=== PATIENT | female | born 1985 | race Caucasian/White ===

== ENCOUNTER 2017-09-12 16:00 | Emergency (ER) | payer OTHER, SELFPAY ==
[2017-09-12 16:02] VITALS: BP 149/110; PULSE 127; RESP 20; TEMP 36.6; O2SAT 98; BMI 20.3
--- NOTE | 2017-09-12 16:37 | HMH.EDGENADL ---
ED Disposition Clinical Impression: Drug abuse, Dehydration Disposition: Left Against Medical Advice Condition on Discharge: Good Instructions: Anxiety Disorders Additional Instructions: keep your drug treatment program that you have lined up tommorrow. return if you change your mind about letting us check some labs, and IV hydration. give patient social work associate followup give patient psychiatric followup return if any suicidal thoughts or any problems to ER - Critical Care Critical Care Time: No Attestation: On 09/12/17, the high probability of a clinically significant, sudden or life threatening deterioration of the following system(s) required my full and direct attention, intervention and personal management. The time I documented below is in addition to time spent performing reported procedures but includes the following listed in this critical care notation. Medical Decision Making Vital Signs: 09/12/17 16:02 Temperature 97.8 F Temperature Source Oral Pulse Rate [Right Radial] 127 H Respiratory Rate 20 Blood Pressure [Right Arm] 149/110 Blood Pressure Mean [Right Arm] 123 Blood Pressure Source [Right Arm] Automatic Cuff Blood Pressure Position [Right Arm] Sitting 02 Sat by Pulse Oximetry 98 Oxygen Delivery Method Room Air Orders (Tests/Meds): ORDERS Category Date Time Status Beta HCG, Qual [HCG Qualitative, Serum] Stat Lab 09/12/17 16:27 Ordered Complete Blood Count Auto Diff Stat Lab 09/12/17 16:27 Ordered Comprehensive Metabolic Panel Stat Lab 09/12/17 16:27 Ordered - Yvan Inquiry Pt receiving controlled substance: No General Adult HPI - General Chief complaint: Anxiety Stated complaint: possible Mode of Arrival: EMS Limitations: No Limitations Description of Symptoms (Recalled from ER Triage Doc. by RN): pt is anxiousis out of clonazapam, went to social work associate and was told by law enforcement she had to come here or go to [facility] - History of Present Illness HPI narrative: Patient to me denies drug abuse. She is here by police the story is somewhat vague. States she does not want to be here she has track byers on her left arm she denies injecting any drugs. Denies any drug abuse she states [facility] she tells me she has not been on: Benazepril I am for over 2 weeks. Denies any suicidal or homicidal ideation she states she chronically hears voices and that is unchanged she denies any visual hallucinations she denies any pain. Patient appears dehydrated to me she denies being dehydrated and she does not want any IV fluids or any blood draws or workup done. Discussed with her that I would definitely recommend some IV fluid and some blood work so we could help her out but she states that she is going to sign out AGAINST MEDICAL ADVICE discussed with the risk of and permanent disability. She states that she already has drug rehab arranged tomorrow and has a bed in the facility and that she is going to her family's house today, that she is going to follow-up with the drug rehab tomorrow. - Related Data Home Medications Medication Instructions Recorded Confirmed Amitriptyline HCl [Elavil 25mg 25 mg PO DAILY 09/12/17 09/12/17 tablet] Buprenorphine HCl [Subutex 8mg ODT] 8 mg SL QID 09/12/17 09/12/17 clonazePAM [Clonazepam] 2 mg PO TID 09/12/17 09/12/17 Allergies Allergy/AdvReac Type Severity Reaction Status Date / Time acetaminophen [ACETAMINOPHEN] Allergy Mild Verified 09/12/17 16:18 codeine [CODEINE] Allergy Mild Verified 09/12/17 16:18 phenazopyridine Allergy Mild Verified 09/12/17 16:18 [From PYRIDIUM] [facility] History I have reviewed the patient's past medical history: Yes Medical History: Denies:: Cancer, Diabetes Mellitus Type 1, Diabetes Mellitus Type 2, MRSA Amputation: No Fractures: No - *Social History Smoking Status: Current every day smoker Tobacco Type: cigarettes # Packs/Day (cigarettes): 1 Alcohol
--- NOTE | 2017-09-12 16:41 | ED_ITS ---
ED Disposition Clinical Impression: Drug abuse, Dehydration Disposition: Left Against Medical Advice Condition on Discharge: Good Instructions: Anxiety Disorders Additional Instructions: keep your drug treatment program that you have lined up tommorrow. return if you change your mind about letting us check some labs, and IV hydration. 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 The time I documented below is in addition to time spent performing reported procedures but includes the following listed in this critical care notation. Medical Decision Making Vital Signs: 09/12/17 16:02 Temperature 97.8 F Temperature Source Oral Pulse Rate [Right Radial] 127 H Respiratory Rate 20 Blood Pressure [Right Arm] 149/110 Blood Pressure Mean [Right Arm] 123 Blood Pressure Source [Right Arm] Automatic Cuff Blood Pressure Position [Right Arm] Sitting 02 Sat by Pulse Oximetry 98 Oxygen Delivery Method Room Air Orders (Tests/Meds): ORDERS Category Date Time Status Beta HCG, Qual [HCG Qualitative, Serum] Stat Lab 09/12/17 16:27 Ordered Complete Blood Count Auto Diff Stat Lab 09/12/17 16:27 Ordered Comprehensive Metabolic Panel Stat Lab 09/12/17 16:27 Ordered - Yvan Inquiry Pt receiving controlled substance: No General Adult HPI - General Chief complaint: Anxiety Stated complaint: possible Mode of Arrival: EMS Limitations: No Limitations Description of Symptoms (Recalled from ER Triage Doc. 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 She is here by police the story is somewhat vague. States she does not want to be here she has track byers on her left arm she denies injecting any drugs. Denies any drug abuse she states she just got out of group home she tells me she has not been on: Benazepril I am for over 2 weeks. Denies any suicidal or homicidal ideation she states she chronically hears voices and that is unchanged she denies any visual hallucinations she denies any pain. Patient appears dehydrated to me she denies being dehydrated and she does not want any IV fluids or any blood draws or workup done. Discussed with her that I would definitely recommend some IV fluid and some blood work so we could help her out but she states that she is going to sign out AGAINST MEDICAL ADVICE discussed with the risk of and permanent disability. She states that she already has drug rehab arranged tomorrow and has a bed in the facility and that she is going to her family's house today, that she is going to follow-up with the drug rehab tomorrow. - Related Data Home Medications Medication Instructions Recorded Confirmed Amitriptyline HCl [Elavil 25mg 25 mg PO DAILY 09/12/17 09/12/17 tablet] Buprenorphine HCl [Subutex 8mg ODT] 8 mg SL QID 09/12/17 09/12/17 clonazePAM [Clonazepam] 2 mg PO TID 09/12/17 09/12/17 Allergies
[2017-09-12 17:28] VITALS: BP 138/90; PULSE 88; RESP 18; TEMP 36.8; O2SAT 99
== END 2017-09-12 17:30 | disposition left against medical advice (07) ==
PROVIDERS: Emergency Provider Emergency Medicine
DX: F19.10 Other psychoactive substance abuse, uncomplicated (principal); E86.0 Dehydration; F41.9 Anxiety disorder, unspecified; F17.210 Nicotine dependence, cigarettes, uncomplicated; Z79.899 Other long term (current) drug therapy; Z88.6 Allergy status to analgesic agent
CPT/HCPCS: 99281

== ENCOUNTER 2018-11-23 00:29 | Inpatient (IN) ==
[2018-11-23 00:52] LABS: Basophils % 0.2 % (0.1-2.0); Eosinophils % 0.2 % (0.1-12.0); Hematocrit 34.4 % (37.0-47.0); Hemoglobin 12.1 g/dL (12.2-16.2); Lymphocytes # 2.2 K/mm3 (0.7-4.5); Mean Corpuscular Hemoglobin 31.9 pg (27.0-31.2); Mean Corpuscular Volume 91.1 fl (81-99); Mean Platelet Volume 9.8 fl (7.4-10.4); Monocytes # 1.1 K/mm3 (0.1-1.0); Monocytes % 7.4 % (1.7-9.3); Neutrophils # 11.3 K/mm3 (1.8-7.8); Neutrophils % 77.2 % (37.0-80.0); Platelet Count 216 K/mm3 (142-424); Red Blood Count 3.78 M/mm3 (4.20-5.40); Red Cell Distribution Width 12.9 % (11.5-17.5); White Blood Count 14.6 K/mm3 (4.8-10.8)
[2018-11-23 01:16] LABS: Alanine Aminotransferase 33 U/L (12-78); Albumin Level 3.2 gm/dL (3.4-5.0); Albumin/Globulin Ratio 0.6 (1.1-1.8); Alkaline Phosphatase 78 U/L (46-116); Anion Gap 16.6 mEq/L (5-15); Aspartate Amino Transferase 29 U/L (15-37); Bilirubin,Total 0.8 mg/dL (0.2-1.0); Blood Urea Nitrogen 6 mg/dL (7-18); Calcium 8.7 mg/dL (8.5-10.1); Carbon Dioxide 27 mmol/L (21.0-32.0); Chloride 92 mmol/L (98-107); Globulin 5.4 gm/dl (1.3-3.2); Glucose 114 mg/dL (74-106); Sodium 133 mmol/L (136-145); Total Protein,Serum 8.6 gm/dL (6.4-8.2)
[2018-11-23 01:27] LABS: C-Reactive Protein > 12.0 mg/L (0.0-0.9)
[2018-11-23 01:28] LABS: Creatine Kinase 281 U/L (26-192); Potassium 2.6 mmoL/L (3.5-5.1)
[2018-11-23 01:33] LABS: Microscopic, Urine URINE MICROSCOPIC (MICROSCOPIC)
[2018-11-23 01:37] LABS: Blood, Urine 3+ (Negative); Glucose,Urine (UA) Negative (Negative); Ketones,Urine TRACE (Negative); Leukocyte Esterase,Urine 2+ (Negative); Protein,Urine 3+ (Negative)
[2018-11-23 01:39] LABS: Appearance,Urine Turbid (Clear); Bilirubin,Urine Negative (Negative); Color,Urine Amber (Yellow)
[2018-11-23 01:42] LABS: Amorphous Sediment,Urine Trace /lpf; Bacteria,Urine 4+ /lpf; Mucus,Urine 2+ /lpf; RBC,Urine 50-100 #/hpf (0-3); WBC,Urine 20-50 #/hpf (0-3)
[2018-11-23 01:44] LABS: Amphetamine/Metha Screen,Urine Positive ng/mL (<1000); Barbiturates Screen,Urine Negative ng/mL (<200); Benzodiazepines Screen,Urine Negative ng/mL (<200); Cannabinoid Screen,Urine Positive ng/mL (<50); Cocaine Screen,Urine Negative ng/mL (<300); Methadone Screen,Urine Negative ng/mL (<300); Opiate Screen,Urine Negative ng/mL (<300); Phencyclidine Screen,Urine Negative ng/mL (<25)
[2018-11-23 02:13] LABS: Erythrocyte Sedimentation Rate > 120 mm/hr (0-20)
--- NOTE | 2018-11-23 06:48 | Emergency Department Note ---
ED Disposition Clinical Impression: Gingivitis, Drug abuse, Severe sepsis, Acute hypokalemia, Elevated erythrocyte sedimentation rate, Elevated C-reactive protein UTI (urinary tract infection) Qualifiers: Urinary tract infection type: site unspecified Hematuria presence: without hematuria Qualified Code(s): N39.0 - Urinary tract infection, site not specified Disposition: Admitted as Observation Condition on Discharge: Serious Referrals: Provider,Referral, MD [Primary Care Provider] - - Critical Care Critical Care Time: No Attestation: On 11/23/18, the high probability of a clinically significant, sudden or life threatening deterioration of the following system(s) required my full and direct attention, intervention and personal management. The time I documented below is in addition to time spent performing reported procedures but includes the following listed in this critical care notation. Medical Decision Making - Medical Records Medical records reviewed: Yes: I reviewed the patient's medical records. - Yvan Inquiry Pt receiving controlled substance: No Vital Signs: 11/23/18 00:30 11/23/18 01:26 11/23/18 01:57 Temperature 99.3 F Temperature Source Oral Pulse Rate [Right] 148 H 140 H 150 H Respiratory Rate 22 18 18 Blood Pressure [Right Arm] 146/99 H 144/92 H 135/76 Blood Pressure Mean [Right Arm] 114 109 95 Blood Pressure Source [Right Arm] Automatic Cuff Automatic Cuff Automatic Cuff Blood Pressure Position [Right Arm] Supine Supine Supine 02 Sat by Pulse Oximetry 100 100 100 Oxygen Delivery Method Room Air Room Air Room Air 11/23/18 02:38 11/23/18 03:06 11/23/18 03:59 Temperature Temperature Source Pulse Rate [Right] 138 H 140 H 136 H Respiratory Rate 16 16 16 Blood Pressure [Right Arm] 140/77 113/72 121/71 Blood Pressure Mean [Right Arm] 98 85 87 Blood Pressure Source [Right Arm] Automatic Cuff Automatic Cuff Automatic Cuff Blood Pressure Position [Right Arm] Supine Supine Supine 02 Sat by Pulse Oximetry 100 98 96 Oxygen Delivery Method Room Air Room Air Room Air 11/23/18 04:40 11/23/18 05:00 11/23/18 05:25 Temperature Temperature Source Pulse Rate [Right] 130 H 126 H 126 H Respiratory Rate 16 16 Blood Pressure [Right Arm] 123/80 121/64 127/68 Blood Pressure Mean [Right Arm] 94 83 87 Blood Pressure Source [Right Arm] Automatic Cuff Blood Pressure Position [Right Arm] Supine 02 Sat by Pulse Oximetry 98 98 98 Oxygen Delivery Method Room Air 11/23/18 05:30 11/23/18 06:09 Temperature Temperature Source Pulse Rate [Right] 112 H 116 H Respiratory Rate 16 Blood Pressure [Right Arm] 112/71 107/67 L Blood Pressure Mean [Right Arm] 84 80 Blood Pressure Source [Right Arm] Automatic Cuff Blood Pressure Position [Right Arm] Supine 02 Sat by Pulse Oximetry 96 98 Oxygen Delivery Method Room Air - Lab Data Lab results reviewed: Yes: I reviewed the patient's lab results. Lab Results 11/23/18 00:35: Urine Color Pallavi, Urine Appearance Turbid, Urine pH 6.0, Ur Specific [place] 1.020, Urine Protein 3+, Urine Glucose (UA) Negative, Urine Ketones Trace, Urine Blood 3+, Urine Nitrate Positive, Urine Bilirubin Negative, Urine Urobilinogen 1.0, Ur Leukocyte Esterase 2+ A, Urine RBC 50-100, Urine WBC 20-50, Amorphous Sediment Trace, Urine Bacteria 4+, Urine Mucus 2+ 11/23/18 00:35: WBC 14.6 H, RBC 3.78 L, Hgb 12.1 L, Hct 34.4 L, MCV 91.1, MCH 31.9 H, MCHC 35.0, RDW 12.9, Plt Count 216, MPV 9.8, Neut % (Auto) 77.2, Lymph % (Auto) 15.0, [place] % (Auto) 7.4, Eos % (Auto) 0.2, Baso % (Auto) 0.2, Neut # (Auto) 11.3 H, Lymph # (Auto) 2.2, [place] # (Auto) 1.1 H, Eos # (Auto) 0.0, Baso # (Auto) 0.0, ESR > 120 H 11/23/18 00:35: Sodium 133 L, Potassium 2.6 L*, Chloride 92 L, Carbon Dioxide 27, Anion Gap 16.6 H, BUN 6 L, Creatinine 1.20 H, Estimated Creat Clear 64, Est imated GFR 53 L, Est GFR ( Amer) 64, Glucose 114 H, Calcium 8.7, Total Bilirubin 0.8, AST 29, ALT 33, Alkaline Phosphatase 78, C-Reactive Protein > 12.0 H, Total Protein 8.6 H, Albumin 3.2 L, Globulin 5.4 H, Albumin/Globulin Ratio 0.6 L 11/23/18 00:35: Total Creatine Kinase 281 H, CK-MB (CK-2) < 0.5, CK-MB (CK-2) Rel Index 0.2, Troponin I < 0.02 11/23/18 01:10: Urine HCG, Qual Negative 11/23/18 01:10: Urine Opiates Screen Negative, Urine Methadone Screen Negative, Ur Barbituates Screen Negative, Ur Phencyclidine Scrn Negative, Ur Amphetamines Screen Positive H, U Benzodiazepines Scrn Negative, Urine Cocaine Screen Negative, U Marijuana (THC) Screen Positive H 11/23/18 01:19: Lactate 1.0 Result diagrams: 11/23/18 00:35 11/23/18 00:35 Orders (Tests/Meds): ED MEDICATIONS Generic Name Dose Route Start Last Admin Trade Name Freq PRN Reason Stop Dose Admin Piperacillin Sod/Tazobactam 100 mls @ 200 mls/hr 11/23/18 08:00 Sod 4.5 gm/ Sodium Chloride IV 12/07/18 07:59 Q6H ELICEO Discontinued Medications Generic Name Dose Route Start Last Admin Trade Name Freq PRN Reason Stop Dose Admin Vancomycin HCl 1,250 mg/ 250 mls @ 125 mls/hr 11/23/18 02:32 11/23/18 02:39 Sodium Chloride IV 11/23/18 04:31 125 mls/hr ONCE ONE Administration Sodium Chloride 1,000 mls @ 999 mls/hr 11/23/18 02:45 11/23/18 02:39 Sod Chlor 0.9% 1000ml Bag IV 11/23/18 03:45 999 mls/hr .Q1H1M ELICEO Administration Ketorolac Tromethamine 30 mg 11/23/18 02:32 11/23/18 02:39 Toradol 30mg/Ml Vial IV 11/23/18 02:33 30 mg ONCE ONE Administration ORDERS Category Date Time Status Blood Culture Stat Micro 11/23/18 01:19 Received Urine Culture Stat Micro 11/23/18 00:35 Received - Radiology Data #1 Image(s): Chest Image Reviewed: Yes I reviewed the patient's radiology image Preliminary Findings: Normal/NAD - US Data US Images: Other (echo) ED US Reviewed: Yes: I have reviewed the patient's US results Findings Narrative: no evid of sbe - ECG Data Tracing #1 Arrhythmias present: sinus tach Ischemic changes: non-specific ST-T wave changes Dental HPI - General Chief complaint: Dental/Oral Stated complaint: Tooth Pain Time Seen by Provider: 11/23/18 00:45 Mode of Arrival: Ambulatory Source of Information: Patient, Significant Other, Medical Record Limitations: No Limitations Description of Symptoms (Recalled from ER Triage Doc. by RN): Pt has right nlower tooth abscess with right chest pain - History of Present Illness HPI Narrative: pt with dental pain and infection over the last few days and now has rt sided chest pain - has used drugs in the past - pt with no recent ivdu reported - pt reports being in suboxone clinic Onset (ago): day(s) Duration: constant Severity: moderate Context: poor dental care Associated symptoms: gum swelling Treatment prior to arrival: none - Related Data Home Medications Medication Instructions Recorded Confirmed Buprenorphine HCl [Subutex 8mg ODT] 8 mg SL QID 09/12/17 11/23/18 Allergies Allergy/AdvReac Type Severity Reaction Status Date / Time acetaminophen [ACETAMINOPHEN] Allergy Mild Verified 11/23/18 00:40 codeine [CODEINE] Allergy Mild Verified 11/23/18 00:40 phenazopyridine Allergy Mild Verified 11/23/18 00:40 [From PYRIDIUM] [facility] History - Hepatitis A Screen Drug use history?: No High risk sexual behaviors?: No History of sexually transmitted infection?: No Currently employed?: No Childcare worker?: No Do you have indoor plumbing?: Yes Do you have electricity?: Yes Attestation statement:: This patient has been screened for Hepatitis A risk factors. I have reviewed the patient's past medical history: Yes Medical History: Denies:: Cancer, Diabetes Mellitus Type 1, Diabetes Mellitus Type 2, MRSA Amputation: No Fractures: No - Social History Smoking Status: Current every day smoker Tobacco Type: cigarettes # Packs/Day (cigarettes): 1 Alcohol Intake: never Occupational Status: unemployed - Psychiatric History Expresses thoughts of harming self/others: None Suicide Plan Description: No Plan ROS Obtained: Yes All systems reviewed & no additional complaints - Constitutional Constitutional: Reports fever(s) - Eyes Eyes: Denies change in vision - ENT Ears, Nose, Mouth, and Throat: Reports as per HPI, Reports dental pain - Cardiovascular Cardiovascular: Reports chest pain, Denies dyspnea - Respiratory Respiratory: No cough - Gastrointestinal Gastrointestingal: Denies: abdominal pain - Genitourinary Female Genitourinary: Denies hematuria - Musculoskeletal Musculoskeletal: Denies joint swelling - Integumentary/Breasts Skin/Breast: Reports rash, Reports other (scattered skin lesions ) - Neurologic Neurologic: Denies convulsions, Denies focal weakness Physical Exam - General General appearance: alert, in no apparent distress - Head Head exam: normocephalic - Eye Eye exam: Present: PERRL, EOMI. Absent: scleral icterus - ENT ENT exam: Present: mucous membranes dry - Expanded ENT Exam Teeth exam: Present: dental caries, gingival swelling - Neck Neck exam: Present: full ROM, trachea midline - Respiratory Respiratory exam: Present: normal lung sounds bilaterally. Absent: respiratory distress - Cardiovascular Cardiovascular exam: Present: regular rate, systolic murmur - Abdominal Exam Abdominal exam: Present: soft - Extremities Exam Extremities exam: Present: full ROM - Neurological Exam Neurological exam: Present: alert, oriented X3, CN II-XII intact - Psychiatric Psychiatric exam: Present: normal affect - Skin Skin exam: Present: rash, other (scattered skin lesions )
--- NOTE | 2018-11-23 10:52 | History & Physical Report ---
*Admission Date: 11/23/18 *Chief complaint: dental pain/infection *History of present illness: this wf presented to ed with dental infection and facial swelling with tacycardia and hx of drug use and rt sided chest pain - she was found to have severe sepsis and uti and dental infection and admitted for ivf and abx [facility] History I have reviewed the patient's past medical history: Yes Medical History: Denies:: Cancer, Diabetes Mellitus Type 1, Diabetes Mellitus Type 2, MRSA *Have you ever received a pneumonia vaccine?: No *Have you received a flu vaccine this season?: No Amputation: No Fractures: No - *Social History Smoking Status: Current every day smoker Tobacco Type: cigarettes # Packs/Day (cigarettes): 1 Alcohol Intake: never *Occupational Status:: unemployed *Travel in the last 8 weeks: None - Psychiatric History Expresses thoughts of harming self/others: None Suicide Plan Description: No Plan Family Hx:: Non-contributory Review of Systems - Review of Systems Review of systems:: pertinent systems reviewed and negative unless documented below - Constitutional Reports fever(s), Reports weakness - Eyes Denies change in vision - ENT Reports dental pain - *Cardiovascular Reports chest pain at rest, Denies shortness of breath - *Respiratory Denies cough, Denies coughing up blood - *Gastrointestinal Denies abdominal pain - *Genitourinary Denies blood in urine - *Musculoskeletal Denies joint pain - Integumentary/Breasts Reports rash - *Neurologic Denies seizure-like activity, Denies localized weakness - Psychiatric Reports other (hx of ivdu in past ), Denies anxiety Meds Home Medications Medication Instructions Recorded Confirmed Type Buprenorphine HCl [Subutex 8mg ODT] 8 mg SL QID 09/12/17 11/23/18 History Allergies Allergy/AdvReac Type Severity Reaction Status Date / Time acetaminophen [ACETAMINOPHEN] Allergy Mild Verified 11/23/18 00:40 codeine [CODEINE] Allergy Mild Verified 11/23/18 00:40 phenazopyridine Allergy Mild Verified 11/23/18 00:40 [From PYRIDIUM] Exam Vital signs and Labs for Last 24 Hours: Temp Pulse Resp BP Pulse Ox 97.8 F 120 H 16 111/72 96 11/23/18 10:26 11/23/18 10:26 11/23/18 10:26 11/23/18 10:26 11/23/18 08:19 Laboratory Results - last 24 hr 11/23/18 00:35: Urine Color Pallavi, Urine Appearance Turbid, Urine pH 6.0, Ur Specific [place] 1.020, Urine Protein 3+, Urine Glucose (UA) Negative, Urine Ketones Trace, Urine Blood 3+, Urine Nitrate Positive, Urine Bilirubin Negative, Urine Urobilinogen 1.0, Ur Leukocyte Esterase 2+ A, Urine RBC 50-100, Urine WBC 20-50, Amorphous Sediment Trace, Urine Bacteria 4+, Urine Mucus 2+ 11/23/18 00:35: WBC 14.6 H, RBC 3.78 L, Hgb 12.1 L, Hct 34.4 L, MCV 91.1, MCH 31.9 H, MCHC 35.0, RDW 12.9, Plt Count 216, MPV 9.8, Neut % (Auto) 77.2, Lymph % (Auto) 15.0, [place] % (Auto) 7.4, Eos % (Auto) 0.2, Baso % (Auto) 0.2, Neut # (Auto) 11.3 H, Lymph # (Auto) 2.2, [place] # (Auto) 1.1 H, Eos # (Auto) 0.0, Baso # (Auto) 0.0, ESR > 120 H 11/23/18 00:35: Sodium 133 L, Potassium 2.6 L*, Chloride 92 L, Carbon Dioxide 27, Anion Gap 16.6 H, BUN 6 L, Creatinine 1.20 H, Estimated Creat Clear 64, Estimated GFR 53 L, Est GFR ( Amer) 64, Glucose 114 H, Calcium 8.7, Total Bilirubin 0.8, AST 29, ALT 33, Alkaline Phosphatase 78, C-Reactive Protein > 12.0 H, Total Protein 8.6 H, Albumin 3.2 L, Globulin 5.4 H, Albumin/Globulin Ratio 0.6 L 11/23/18 00:35: Total Creatine Kinase 281 H, CK-MB (CK-2) < 0.5, CK-MB (CK-2) Rel Index 0.2, Troponin I < 0.02 11/23/18 01:10: Urine HCG, Qual Negative 11/23/18 01:10: Urine Opiates Screen Negative, Urine Methadone Screen Negative, Ur Barbituates Screen Negative, Ur Phencyclidine Scrn Negative, Ur Amphetamines Screen Positive H, U Benzodiazepines Scrn Negative, Urine Cocaine Screen Negative, U Marijuana (THC) Screen Positive H 11/23/18 01:19: Lactate 1.0 I & O for Last 24 hours: Intake & Output 11/20/18 11/21/18 11/22/18 11/23/18 11:59 11:59 11:59 11:59 Weight 130 lb - Constitutional no acute distress - *Routine HEENT Exam Head: Present: normocephalic Eye: Present: EOMI, PERRL. Absent: conjunctival icterus ENT: Present: mucous membranes dry Comments: marked dental dis and gingival dis - *Routine Neck Exam Present: supple. Absent: JVD - *Routine Respiratory Exam Present: CTA bilaterally - *Routine Cardiovascular Exam Present: RRR, tachycardia. Absent: murmur, gallop, rubs - *Routine Abdominal Exam Present: soft. Absent: organomegaly - *Routine Extremities Exam Absent: calf tenderness - Routine Back/Spine/Pelvis Exam Back/Spine: Present: full ROM - *Routine Skin Exam Present: rash (nonspecific ) - *Routine Neurological Exam Present: alert, oriented X3, CN II-XII intact. Absent: motor deficit, altered mental status - Routine Psychiatric Exam Present: anxious Assessment and Plan (1) Dermatitis Current visit: Yes Status: Acute Category: Medical Code(s): L30.9 - Dermatitis, unspecified (2) Drug abuse Current visit: Yes Status: Acute Category: Medical Code(s): F19.10 - Other psychoactive substance abuse, uncomplicated (3) Gingivitis Current visit: Yes Status: Acute Category: Medical Code(s): K05.10 - Chronic gingivitis, plaque induced (4) Severe sepsis Current visit: Yes Status: Acute Category: Medical Code(s): A41.9 - Sepsis, unspecified organism; R65.20 - Severe sepsis without septic shock (5) UTI (urinary tract infection) Current visit: Yes Status: Acute Qualifiers: Urinary tract infection type: site unspecified Hematuria presence: without hematuria Qualified Code(s): N39.0 - Urinary tract infection, site not specified Category: Medical Code(s): N39.0 - Urinary tract infection, site not specified (6) Acute hypokalemia Current visit: Yes Status: Acute Category: Medical Code(s): E87.6 - Hyp okalemia (7) Elevated erythrocyte sedimentation rate Current visit: Yes Status: Acute Category: Medical Code(s): R70.0 - Elevated erythrocyte sedimentation rate (8) Elevated C-reactive protein Current visit: Yes Status: Acute Category: Medical Code(s): R79.82 - Elevated C-reactive protein (CRP)
--- NOTE | 2018-11-23 11:11 | Pharmacy Consult Notes ---
- Pharmacy Consult Date: 11/23/18 Time: 11:09 Referring provider: DR. HERNANDEZ Reason for Consult:: VANCOMYCIN DOSING Allergies and ADEs:: Allergies Allergy/AdvReac Type Severity Reaction Status Date / Time acetaminophen [ACETAMINOPHEN] Allergy Mild Verified 11/23/18 00:40 codeine [CODEINE] Allergy Mild Verified 11/23/18 00:40 phenazopyridine Allergy Mild Verified 11/23/18 00:40 [From PYRIDIUM] Home Medications:: Home Medications Medication Instructions Recorded Confirmed Type Buprenorphine HCl [Subutex 8mg ODT] 8 mg SL QID 09/12/17 11/23/18 History Height: 1.6 m Weight: 67.84 kg Laboratory Results:: Laboratory Results - last 24 hr 11/23/18 00:35: Urine Color Pallavi, Urine Appearance Turbid, Urine pH 6.0, Ur Specific [place] 1.020, Urine Protein 3+, Urine Glucose (UA) Negative, Urine Ketones Trace, Urine Blood 3+, Urine Nitrate Positive, Urine Bilirubin Negative, Urine Urobilinogen 1.0, Ur Leukocyte Esterase 2+ A, Urine RBC 50-100, Urine WBC 20-50, Amorphous Sediment Trace, Urine Bacteria 4+, Urine Mucus 2+ 11/23/18 00:35: WBC 14.6 H, RBC 3.78 L, Hgb 12.1 L, Hct 34.4 L, MCV 91.1, MCH 31.9 H, MCHC 35.0, RDW 12.9, Plt Count 216, MPV 9.8, Neut % (Auto) 77.2, Lymph % (Auto) 15.0, [place] % (Auto) 7.4, Eos % (Auto) 0.2, Baso % (Auto) 0.2, Neut # (Auto) 11.3 H, Lymph # (Auto) 2.2, [place] # (Auto) 1.1 H, Eos # (Auto) 0.0, Baso # (Auto) 0.0, ESR > 120 H 11/23/18 00:35: Sodium 133 L, Potassium 2.6 L*, Chloride 92 L, Carbon Dioxide 27, Anion Gap 16.6 H, BUN 6 L, Creatinine 1.20 H, Estimated Creat Clear 64, Estimated GFR 53 L, Est GFR ( Amer) 64, Glucose 114 H, Calcium 8.7, Total Bilirubin 0.8, AST 29, ALT 33, Alkaline Phosphatase 78, C-Reactive Protein > 12.0 H, Total Protein 8.6 H, Albumin 3.2 L, Globulin 5.4 H, Albumin/Globulin Ratio 0.6 L 11/23/18 00:35: Total Creatine Kinase 281 H, CK-MB (CK-2) < 0.5, CK-MB (CK-2) Rel Index 0.2, Troponin I < 0.02 11/23/18 01:10: Urine HCG, Qual Negative 11/23/18 01:10: Urine Opiates Screen Negative, Urine Methadone Screen Negative, Ur Barbituates Screen Negative, Ur Phencyclidine Scrn Negative, Ur Amphetamines Screen Positive H, U Benzodiazepines Scrn Negative, Urine Cocaine Screen Negative, U Marijuana (THC) Screen Positive H 11/23/18 01:19: Lactate 1.0 Medical History: Denies:: Cancer, Diabetes Mellitus Type 1, Diabetes Mellitus Type 2, MRSA Assessment and Plan (1) Dermatitis Current visit: Yes Status: Acute Category: Medical Code(s): L30.9 - Dermatitis, unspecified (2) Drug abuse Current visit: Yes Status: Acute Category: Medical Code(s): F19.10 - Other psychoactive substance abuse, uncomplicated (3) Gingivitis Current visit: Yes Status: Acute Category: Medical Code(s): K05.10 - Chronic gingivitis, plaque induced (4) Severe sepsis Current visit: Yes Status: Acute Category: Medical Code(s): A41.9 - Sepsis, unspecified organism; R65.20 - Severe sepsis without septic shock (5) UTI (urinary tract infection) Current visit: Yes Status: Acute Qualifiers: Urinary tract infection type: site unspecified Hematuria presence: without hematuria Qualified Code(s): N39.0 - Urinary tract infection, site not specified Category: Medical Code(s): N39.0 - Urinary tract infection, site not specified (6) Acute hypokalemia Current visit: Yes Status: Acute Category: Medical Code(s): E87.6 - Hypokalemia (7) Elevated erythrocyte sedimentation rate Current visit: Yes Status: Acute Category: Medical Code(s): R70.0 - Elevated erythrocyte sedimentation rate (8) Elevated C-reactive protein Current visit: Yes Status: Acute Category: Medical Code(s): R79.82 - Elevated C-reactive protein (CRP) - Assessment and plan all Dx Assessment and Plan for all problems:: BASED ON PATIENT FACTORS, RECOMMEND VANCOMYCIN 1,000MG IV EVERY 24 HOURS. PATIENT RECEIVED LOADING DOSE OF 1,250MG ONCE IN EMERGENCY ROOM ON 11/23/18 @ 0230. PHARMACY WILL CONTINUE TO MONITOR AND WILL OBTAIN TROUGH LEVEL PRIOR TO FOURTH DOSE. -KINDRA JACKSON, [place]
--- NOTE | 2018-11-23 16:22 | Cardiology Report ---
PROCEDURE: 2-D M-mode and color Doppler study INDICATIONS FOR THE TEST: Chest pain + COPD Heart Murmur+ Tobacco Smoking Palpitations Fatigue Syncope+ Edema Hypertension Diabetes Mellitus Rheumatic Fever SOB+DURÁN Obesity Hyperlipidemia Family History HD Additional History DRUG USE, ABCESSED TEETH PATIENT INFORMATION HEIGHT: 63 WEIGHT:130 GENDER: Female B/P: 2-D/M-MODE INTERPRETATION: 2-D MEASUREMENTS OBSERVED VALUES IN CMS Right Ventricular Dimension (RVDd) 1.2 Interventricular Septum (Thickness)(IVsd) 1.0 Left Ventricular Internal Dimensions(LVIDd) 4.7 Left Ventricular Posterior Wall (Thickness)(LVPWd) 0.6 Aortic Root 2.8 Aortic Cusp Separation 1.9 Left Atrial Dimensions (LAD) 2.8 2D 1. Left atrium is normal size, left ventricle is normal size, there is no concentric left ventricular hypertrophy, visually estimated ejection fraction 55% with no regional wall motion abnormality. 2. The right atrium and right ventricle are normal size and contractility. 3. The aortic, mitral and tricuspid valvular grossly normal. 4. The pulmonic valve is poorly visualized. 5. No significant pericardial effusion noted. DOPPLER INTERROGATION: Doppler interrogation of the aortic, mitral and tricuspid valvular presence of mild mitral and tricuspid regurgitation, tricuspid regurgitant jet velocity is inadequate for calculation of the right ventricular systolic pressure, diastolic parameters are within normal range. CONCLUSION: 1. Normal left ventricular size, preserved left ventricular systolic function, visually estimated ejection fraction 55% with no regional wall motion abnormality, diastolic parameters are within normal range. 2. Mild mitral and tricuspid regurgitation 3. No significant pericardial effusion noted.
[2018-11-24 06:47] LABS: Basophils % 0.1 % (0.1-2.0); Eosinophils % 0.6 % (0.1-12.0); Hematocrit 27.2 % (37.0-47.0); Hemoglobin 9.2 g/dL (12.2-16.2); Lymphocytes # 1.6 K/mm3 (0.7-4.5); Mean Corpuscular Hemoglobin 31.6 pg (27.0-31.2); Mean Corpuscular Volume 93.2 fl (81-99); Mean Platelet Volume 9.3 fl (7.4-10.4); Monocytes # 0.6 K/mm3 (0.1-1.0); Monocytes % 8.2 % (1.7-9.3); Neutrophils # 4.5 K/mm3 (1.8-7.8); Platelet Count 153 K/mm3 (142-424); Red Blood Count 2.92 M/mm3 (4.20-5.40); Red Cell Distribution Width 13.1 % (11.5-17.5); White Blood Count 6.7 K/mm3 (4.8-10.8)
[2018-11-24 07:27] LABS: Calcium 6.8 mg/dL (8.5-10.1)
--- NOTE | 2018-11-24 09:01 | Pharmacy Consult Notes ---
- Pharmacy Consult Date: 11/24/18 Time: 09:00 Referring provider: DR. HERNANDEZ Reason for Consult:: VANCOMYCIN DOSING Allergies and ADEs:: Allergies Allergy/AdvReac Type Severity Reaction Status Date / Time acetaminophen [ACETAMINOPHEN] Allergy Mild Verified 11/23/18 00:40 codeine [CODEINE] Allergy Mild Verified 11/23/18 00:40 phenazopyridine Allergy Mild Verified 11/23/18 00:40 [From PYRIDIUM] Home Medications:: Home Medications Medication Instructions Recorded Confirmed Type No Known Home Medications 11/24/18 11/24/18 History Height: 1.6 m Weight: 67.699 kg Laboratory Results:: Laboratory Results - last 24 hr 11/24/18 06:25: WBC 6.7 D, RBC 2.92 L, Hgb 9.2 L, Hct 27.2 L, MCV 93.2, MCH 31.6 H, MCHC 34.0, RDW 13.1, Plt Count 153 D, MPV 9.3, Neut % (Auto) 67.0, Lymph % (Auto) 24.0, [place] % (Auto) 8.2, Eos % (Auto) 0.6, Baso % (Auto) 0.1, Neut # (Auto) 4.5, Lymph # (Auto) 1.6, [place] # (Auto) 0.6, Eos # (Auto) 0.0, Baso # (Auto) 0.0 11/24/18 06:25: Sodium 141, Potassium 3.0 L, Chloride 105, Carbon Dioxide 26, Anion Gap 13.0, BUN 7, Creatinine 0.99, Estimated Creat Clear 89, Estimated GFR 66, Est GFR ( Amer) 80 D, Glucose 96, Calcium 6.8 L D, Magnesium 2.0 Medical History: Denies:: Cancer, Diabetes Mellitus Type 1, Diabetes Mellitus Type 2, Internal Pacemaker, MRSA Assessment and Plan (1) Dermatitis Current visit: Yes Status: Acute Category: Medical Code(s): L30.9 - Dermatitis, unspecified (2) Drug abuse Current visit: Yes Status: Acute Category: Medical Code(s): F19.10 - Other psychoactive substance abuse, uncomplicated (3) Gingivitis Current visit: Yes Status: Acute Category: Medical Code(s): K05.10 - Chronic gingivitis, plaque induced (4) Severe sepsis Current visit: Yes Status: Acute Category: Medical Code(s): A41.9 - Sepsis, unspecified organism; R65.20 - Severe sepsis without septic shock (5) UTI (urinary tract infection) Current visit: Yes Status: Acute Qualifiers: Urinary tract infection type: site unspecified Hematuria presence: without hematuria Qualified Code(s): N39.0 - Urinary tract infection, site not specified Category: Medical Code(s): N39.0 - Urinary tract infection, site not specified (6) Acute hypokalemia Current visit: Yes Status: Acute Category: Medical Code(s): E87.6 - Hypokalemia (7) Elevated erythrocyte sedimentation rate Current visit: Yes Status: Acute Category: Medical Code(s): R70.0 - Elevated erythrocyte sedimentation rate (8) Elevated C-reactive protein Current visit: Yes Status: Acute Category: Medical Code(s): R79.82 - Elevated C-reactive protein (CRP) - Assessment and plan all Dx Assessment and Plan for all problems:: PATIENT'S CREATININE DECREASED FROM 1.20 TO 0.99. RECOMMEND CHANGING INTERVAL FROM Q24H TO Q12H. PHARMACY WILL OBTAIN VANCOMYCIN TROUGH LEVEL TOMORROW.
--- NOTE | 2018-11-24 09:33 | Pharmacy Consult Notes ---
[facility] Pharmacy VTE Monitoring - Patient Demographics Admission date: 11/23/18 Report Date: 11/24/18 Time: 09:33 Allergies/Adverse Reactions: Patient Allergies acetaminophen [ACETAMINOPHEN] Allergy (Mild, Verified 11/23/18 00:40) codeine [CODEINE] Allergy (Mild, Verified 11/23/18 00:40) phenazopyridine [From PYRIDIUM] Allergy (Mild, Verified 11/23/18 00:40) Height: 1.6 m Weight: 67.699 kg Patient Problems: Current Active Problems (Updated 11/23/18 @ 10:55 by Tom Carroll MD) Drug abuse (Acute) Gingivitis (Acute) Severe sepsis (Acute) UTI (urinary tract infection) (Acute) Acute hypokalemia (Acute) Elevated erythrocyte sedimentation rate (Acute) Elevated C-reactive protein (Acute) Dermatitis (Acute) - VTE Risk Labs: VTE Related Lab Results Hgb 9.2 g/dL (12.2-16.2) L 11/24/18 06:25 Hct 27.2 % (37.0-47.0) L 11/24/18 06:25 Plt Count 153 K/mm3 (142-424) D 11/24/18 06:25 BUN 7 mg/dL (7-18) 11/24/18 06:25 Creatinine 0.99 mg/dL (0.55-1.02) 11/24/18 06:25 Estimated Creat Clear 89 mL/min (50-200) 11/24/18 06:25 Was VTE Risk Assessment Performed: Yes VTE Score: 0 VTE Risk Level: Very Low Risk - Prophylaxis VTE Prophylaxis Ordered?: Yes Types of VTE Prophylaxis: TEDS Knee High Location of Applied Device: Bilateral Lower Extremeties - VTE Diagnosis Confirmed Treatment or plan recommended: Continue Current Treatment
--- NOTE | 2018-11-24 10:06 | Progress Note ---
Internal Medicine - PN: Subj *Date: 11/24/18 *Time: 10:04 Interval history: doing better but had fever last pm - no new sx Exam Vital signs and Labs for Last 24 Hours: Temp Pulse Resp BP Pulse Ox 98.7 F 98 H 19 124/52 L 99 11/24/18 08:00 11/24/18 08:00 11/24/18 08:00 11/24/18 08:00 11/24/18 08:00 Laboratory Results - last 24 hr 11/24/18 06:25: WBC 6.7 D, RBC 2.92 L, Hgb 9.2 L, Hct 27.2 L, MCV 93.2, MCH 31.6 H, MCHC 34.0, RDW 13.1, Plt Count 153 D, MPV 9.3, Neut % (Auto) 67.0, Lymph % (Auto) 24.0, [place] % (Auto) 8.2, Eos % (Auto) 0.6, Baso % (Auto) 0.1, Neut # (Auto) 4.5, Lymph # (Auto) 1.6, [place] # (Auto) 0.6, Eos # (Auto) 0.0, Baso # (Auto) 0.0 11/24/18 06:25: Sodium 141, Potassium 3.0 L, Chloride 105, Carbon Dioxide 26, Anion Gap 13.0, BUN 7, Creatinine 0.99, Estimated Creat Clear 89, Estimated GFR 66, Est GFR ( Amer) 80 D, Glucose 96, Calcium 6.8 L D, Magnesium 2.0 I & O for Last 24 hours: Intake & Output 11/21/18 11/22/18 11/23/18 11/24/18 11:59 11:59 11:59 11:59 Intake Total 3171 / 3171 Output Total 300 / 300 Balance 2871 / 2871 Weight 149 lb 9 oz 149 lb 4 oz Microbiology Reports for the Last 24 Hours: Microbiology 11/23/18 00:35 Urine,Clean Catch Urine Culture - Preliminary - Constitutional no acute distress - *Routine HEENT Exam Head: Present: normocephalic Eye: Present: EOMI, PERRL ENT: Present: mucous membranes dry - *Routine Neck Exam Present: supple. Absent: JVD - *Routine Respiratory Exam Present: CTA bilaterally - *Routine Cardiovascular Exam Present: RRR. Absent: murmur - *Routine Abdominal Exam Present: soft - *Routine Extremities Exam Absent: calf tenderness - *Routine Skin Exam Present: intact - *Routine Neurological Exam Present: alert, oriented X3, CN II-XII intact - Routine Psychiatric Exam Present: normal affect Assessment and Plan (1) Dermatitis Current visit: Yes Status: Acute Category: Medical Code(s): L30.9 - Dermatitis, unspecified (2) Drug abuse Current visit: Yes Status: Acute Category: Medical Code(s): F19.10 - Other psychoactive substance abuse, uncomplicated (3) Gingivitis Current visit: Yes Status: Acute Category: Medical Code(s): K05.10 - Chronic gingivitis, plaque induced (4) Severe sepsis Current visit: Yes Status: Acute Category: Medical Code(s): A41.9 - Sepsis, unspecified organism; R65.20 - Severe sepsis without septic shock (5) UTI (urinary tract infection) Current visit: Yes Status: Acute Qualifiers: Urinary tract infection type: site unspecified Hematuria presence: without hematuria Qualified Code(s): N39.0 - Urinary tract infection, site not specified Category: Medical Code(s): N39.0 - Urinary tract infection, site not specified (6) Acute hypokalemia Current visit: Yes Status: Acute Category: Medical Code(s): E87.6 - Hypokalemia (7) Elevated erythrocyte sedimentation rate Current visit: Yes Status: Acute Category: Medical Code(s): R70.0 - Elevated erythrocyte sedimentation rate (8) Elevated C-reactive protein Current visit: Yes Status: Acute Category: Medical Code(s): R79.82 - Elevated C-reactive protein (CRP)
--- NOTE | 2018-11-25 10:11 | Progress Note ---
Internal Medicine - PN: Subj *Date: 11/25/18 *Time: 10:08 Interval history: today pt states she is not eating or drinking due to sore mouth Exam Vital signs and Labs for Last 24 Hours: Temp Pulse Resp BP Pulse Ox 98.8 F 84 16 96/64 L 95 11/25/18 07:44 11/25/18 07:44 11/25/18 07:44 11/25/18 07:44 11/25/18 07:44 Laboratory Results - last 24 hr 11/23/18 00:35: Urine Color Pallavi, Urine Appearance Turbid, Urine pH 6.0, Ur Specific [place] 1.020, Urine Protein 3+, Urine Glucose (UA) Negative, Urine Ketones Trace, Urine Blood 3+, Urine Nitrate Positive, Urine Bilirubin Negative, Urine Urobilinogen 1.0, Ur Leukocyte Esterase 2+ A, Urine RBC 50-100, Urine WBC 20-50, Amorphous Sediment Trace, Urine Bacteria 4+, Urine Mucus 2+ I & O for Last 24 hours: Intake & Output 11/22/18 11/23/18 11/24/18 11/25/18 11:59 11:59 11:59 11:59 Intake Total 3171 / 3171 3058 / 3058 Output Total 300 / 300 350 / 350 Balance 2871 / 2871 2708 / 2708 Weight 149 lb 9 oz 149 lb 4 oz 167 lb 4.8 oz Microbiology Reports for the Last 24 Hours: Microbiology 11/23/18 00:35 Urine,Clean Catch Urine Culture - Preliminary Gram Negative Rods Gram Negative Rods#2 11/23/18 01:19 Blood Blood Culture - Preliminary NO GROWTH AFTER 48 HOURS 11/23/18 01:19 Blood Blood Culture - Preliminary NO GROWTH AFTER 48 HOURS - Constitutional no acute distress - *Routine HEENT Exam Head: Present: normocephalic Eye: Present: EOMI, PERRL ENT: Present: mucous membranes moist Comments: sores surrounding mouth - *Routine Neck Exam Present: supple. Absent: lymphadenopathy - *Routine Respiratory Exam Present: CTA bilaterally - *Routine Cardiovascular Exam Present: RRR - *Routine Abdominal Exam Present: soft, normoactive bowel sounds. Absent: tenderness - *Routine Extremities Exam Absent: cyanosis, clubbing, edema - *Routine Skin Exam Present: warm, wounds. Absent: rash Comments: scattered scabbed areas in different stages of healing to mouth,face,arms,legs,back - *Routine Neurological Exam Present: alert, oriented X3 - Routine Psychiatric Exam Present: normal affect Assessment and Plan (1) Dermatitis Current visit: Yes Status: Acute Category: Medical Code(s): L30.9 - Dermatitis, unspecified (2) Drug abuse Current visit: Yes Status: Acute Category: Medical Code(s): F19.10 - Other psychoactive substance abuse, uncomplicated (3) Gingivitis Current visit: Yes Status: Acute Category: Medical Code(s): K05.10 - Chronic gingivitis, plaque induced (4) Severe sepsis Current visit: Yes Status: Acute Category: Medical Code(s): A41.9 - Sepsis, unspecified organism; R65.20 - Severe sepsis without septic shock (5) UTI (urinary tract infection) Current visit: Yes Status: Acute Qualifiers: Urinary tract infection type: site unspecified Hematuria presence: without hematuria Qualified Code(s): N39.0 - Urinary tract infection, site not specified Category: Medical Code(s): N39.0 - Urinary tract infection, site not specified (6) Acute hypokalemia Current visit: Yes Status: Acute Category: Medical Code(s): E87.6 - Hypokalemia (7) Elevated erythrocyte sedimentation rate Current visit: Yes Status: Acute Category: Medical Code(s): R70.0 - Elevated erythrocyte sedimentation rate (8) Elevated C-reactive protein Current visit: Yes Status: Acute Category: Medical Code(s): R79.82 - Elevated C-reactive protein (CRP) - Assessment and plan all Dx Assessment and Plan for all problems:: discussed with aidan all orders per aidan- Aidan will round later today
[2018-11-25 10:33] LABS: Basophils % 0.4 % (0.1-2.0); Eosinophils # 0.1 K/mm3 (0.0-0.4); Eosinophils % 1.1 % (0.1-12.0); Hematocrit 27.6 % (37.0-47.0); Hemoglobin 9.4 g/dL (12.2-16.2); Lymphocytes # 2.1 K/mm3 (0.7-4.5); Mean Corpuscular HGB Conc 33.9 g/dL (31.8-35.4); Mean Corpuscular Hemoglobin 31.6 pg (27.0-31.2); Mean Corpuscular Volume 93.2 fl (81-99); Mean Platelet Volume 9.3 fl (7.4-10.4); Monocytes # 0.6 K/mm3 (0.1-1.0); Monocytes % 8.3 % (1.7-9.3); Neutrophils # 4.3 K/mm3 (1.8-7.8); Neutrophils % 60.2 % (37.0-80.0); Platelet Count 231 K/mm3 (142-424); Red Blood Count 2.96 M/mm3 (4.20-5.40); Red Cell Distribution Width 13.3 % (11.5-17.5); White Blood Count 7.1 K/mm3 (4.8-10.8)
[2018-11-25 10:49] LABS: Albumin Level 1.9 gm/dL (3.4-5.0); Albumin/Globulin Ratio 0.4 (1.1-1.8); Anion Gap 14.9 mEq/L (5-15); Bilirubin,Total 0.4 mg/dL (0.2-1.0); Calcium 7.4 mg/dL (8.5-10.1); Globulin 4.3 gm/dl (1.3-3.2); Total Protein,Serum 6.2 gm/dL (6.4-8.2)
[2018-11-25 10:52] LABS: Potassium 2.9 mmoL/L (3.5-5.1)
[2018-11-25 11:10] LABS: Hepatitis B Core Antibody IgM Negative (Negative); Hepatitis B Surface Antigen Negative (Negative)
[2018-11-25 12:40] LABS: Hepatitis C Antibody >11.0 s/co ratio (0.0-0.9)
[2018-11-25 14:15] LABS: Amphetamine/Metha Screen,Urine Negative ng/mL (<1000); Barbiturates Screen,Urine Negative ng/mL (<200); Benzodiazepines Screen,Urine Negative ng/mL (<200); Cannabinoid Screen,Urine Negative ng/mL (<50); Cocaine Screen,Urine Negative ng/mL (<300); Methadone Screen,Urine Negative ng/mL (<300); Opiate Screen,Urine Negative ng/mL (<300); Phencyclidine Screen,Urine Negative ng/mL (<25)
--- NOTE | 2018-11-25 14:57 | Pharmacy Consult Notes ---
- Pharmacy Consult Date: 11/25/18 Time: 14:56 Referring provider: DR. HERNANDEZ Reason for Consult:: VANCOMYCIN LEVEL Allergies and ADEs:: Allergies Allergy/AdvReac Type Severity Reaction Status Date / Time acetaminophen [ACETAMINOPHEN] Allergy Mild Verified 11/23/18 00:40 codeine [CODEINE] Allergy Mild Verified 11/23/18 00:40 phenazopyridine Allergy Mild Verified 11/23/18 00:40 [From PYRIDIUM] Home Medications:: Home Medications Medication Instructions Recorded Confirmed Type No Known Home Medications 11/24/18 11/24/18 History Height: 1.6 m Weight: 75.886 kg Laboratory Results:: Laboratory Results - last 24 hr 11/23/18 00:35: Urine Color Pallavi, Urine Appearance Turbid, Urine pH 6.0, Ur Specific [place] 1.020, Urine Protein 3+, Urine Glucose (UA) Negative, Urine Ketones Trace, Urine Blood 3+, Urine Nitrate Positive, Urine Bilirubin Negative, Urine Urobilinogen 1.0, Ur Leukocyte Esterase 2+ A, Urine RBC 50-100, Urine WBC 20-50, Amorphous Sediment Trace, Urine Bacteria 4+, Urine Mucus 2+ 11/23/18 15:30: Hepatitis A IgM Ab Negative, Hep Bs Antigen Negative, Hep B Core IgM Ab Negative, Hepatitis C Antibody >11.0 H 11/25/18 10:30: WBC 7.1, RBC 2.96 L, Hgb 9.4 L, Hct 27.6 L, MCV 93.2, MCH 31.6 H , MCHC 33.9, RDW 13.3, Plt Count 231 D, MPV 9.3, Neut % (Auto) 60.2, Lymph % (Auto) 30.0, [place] % (Auto) 8.3, Eos % (Auto) 1.1, Baso % (Auto) 0.4, Neut # (Auto) 4.3, Lymph # (Auto) 2.1, [place] # (Auto) 0.6, Eos # (Auto) 0.1, Baso # (Auto) 0.0 11/25/18 10:30: Sodium 144, Potassium 2.9 L*, Chloride 108 H, Carbon Dioxide 24, Anion Gap 14.9, BUN 3 L D, Creatinine 1.03 H, Estimated Creat Clear 96, Estimated GFR 63, Est GFR ( Amer) 76, Glucose 94, Calcium 7.4 L, Total Bilirubin 0.4, AST 25, ALT 23 D, Alkaline Phosphatase 71, Total Protein 6.2 L D , Albumin 1.9 L, Globulin 4.3 H, Albumin/Globulin Ratio 0.4 L 11/25/18 13:45: Urine Opiates Screen Negative, Urine Methadone Screen Negative, Ur Barbituates Screen Negative, Ur Phencyclidine Scrn Negative, Ur Amphetamines Screen Negative, U Benzodiazepines Scrn Negative, Urine Cocaine Screen Negative, U Marijuana (THC) Screen Negative 11/25/18 13:56: Vancomycin Trough 11.9 Medical History: Denies:: Cancer, Diabetes Mellitus Type 1, Diabetes Mellitus Type 2, Internal Pacemaker, MRSA Assessment and Plan (1) Dermatitis Current visit: Yes Status: Acute Category: Medical Code(s): L30.9 - Dermatitis, unspecified (2) Drug abuse Current visit: Yes Status: Acute Category: Medical Code(s): F19.10 - Other psychoactive substance abuse, uncomplicated (3) Gingivitis Current visit: Yes Status: Acute Category: Medical Code(s): K05.10 - Chronic gingivitis, plaque induced (4) Severe sepsis Current visit: Yes Status: Acute Category: Medical Code(s): A41.9 - Sepsis, unspecified organism; R65.20 - Severe sepsis without septic shock (5) UTI (urinary tract infection) Current visit: Yes Status: Acute Qualifiers: Urinary tract infection type: site unspecified Hematuria presence: without hematuria Qualified Code(s): N39.0 - Urinary tract infection, site not specified Category: Medical Code(s): N39.0 - Urinary tract infection, site not specified (6) Acute hypokalemia Current visit: Yes Status: Acute Category: Medical Code(s): E87.6 - Hypokalemia (7) Elevated erythrocyte sedimentation rate Current visit: Yes Status: Acute Category: Medical Code(s): R70.0 - Elevated erythrocyte sedimentation rate (8) Elevated C-reactive protein Current visit: Yes Status: Acute Category: Medical Code(s): R79.82 - Elevated C-reactive protein (CRP) - Assessment and plan all Dx Assessment and Plan for all problems:: BASED ON PATIENT'S VANCOMYCIN TROUGH LEVEL OF 11.9 MCG/ML TODAY, RECOMMEND CONTINUING WITH VANCOMYCIN 1 GM EVERY 12 HOURS AT THIS TIME. PHARMACY WILL FOLLOW DAILY AND ADJUST APPROPRIATE. USMAN PUENTE, PHARMD
[2018-11-26 07:17] LABS: Basophils % 0.3 % (0.1-2.0); Eosinophils # 0.1 K/mm3 (0.0-0.4); Eosinophils % 1.4 % (0.1-12.0); Hematocrit 30.3 % (37.0-47.0); Hemoglobin 10.1 g/dL (12.2-16.2); Lymphocytes # 2.1 K/mm3 (0.7-4.5); Lymphocytes % 30.6 % (10-50); Mean Corpuscular HGB Conc 33.4 g/dL (31.8-35.4); Mean Corpuscular Hemoglobin 31.3 pg (27.0-31.2); Mean Corpuscular Volume 93.7 fl (81-99); Mean Platelet Volume 9.5 fl (7.4-10.4); Monocytes # 0.5 K/mm3 (0.1-1.0); Neutrophils # 4.2 K/mm3 (1.8-7.8); Neutrophils % 60.7 % (37.0-80.0); Platelet Count 280 K/mm3 (142-424); Red Blood Count 3.23 M/mm3 (4.20-5.40); Red Cell Distribution Width 13.3 % (11.5-17.5); White Blood Count 6.9 K/mm3 (4.8-10.8)
[2018-11-26 07:21] LABS: Anion Gap 11.4 mEq/L (5-15); Potassium 3.4 mmoL/L (3.5-5.1)
--- NOTE | 2018-11-26 10:28 | Progress Note ---
Internal Medicine - PN: Subj *Date: 11/26/18 *Time: 10:28 Exam Vital signs and Labs for Last 24 Hours: Temp Pulse Resp BP Pulse Ox 98.3 F 91 H 16 101/60 L 93 L 11/26/18 08:00 11/26/18 08:00 11/26/18 08:00 11/26/18 08:00 11/26/18 08:00 Laboratory Results - last 24 hr 11/23/18 15:30: Hepatitis A IgM Ab Negative, Hep Bs Antigen Negative, Hep B Core IgM Ab Negative, Hepatitis C Antibody >11.0 H 11/25/18 10:30: WBC 7.1, RBC 2.96 L, Hgb 9.4 L, Hct 27.6 L, MCV 93.2, MCH 31.6 H , MCHC 33.9, RDW 13.3, Plt Count 231 D, MPV 9.3, Neut % (Auto) 60.2, Lymph % (Auto) 30.0, [place] % (Auto) 8.3, Eos % (Auto) 1.1, Baso % (Auto) 0.4, Neut # (Auto) 4.3, Lymph # (Auto) 2.1, [place] # (Auto) 0.6, Eos # (Auto) 0.1, Baso # (Auto) 0.0 11/25/18 10:30: Sodium 144, Potassium 2.9 L*, Chloride 108 H, Carbon Dioxide 24, Anion Gap 14.9, BUN 3 L D, Creatinine 1.03 H, Estimated Creat Clear 96, Estimated GFR 63, Est GFR ( Amer) 76, Glucose 94, Calcium 7.4 L, Total Bilirubin 0.4, AST 25, ALT 23 D, Alkaline Phosphatase 71, Total Protein 6.2 L D , Albumin 1.9 L, Globulin 4.3 H, Albumin/Globulin Ratio 0.4 L 11/25/18 13:45: Urine Opiates Screen Negative, Urine Methadone Screen Negative, Ur Barbituates Screen Negative, Ur Phencyclidine Scrn Negative, Ur Amphetamines Screen Negative, U Benzodiazepines Scrn Negative, Urine Cocaine Screen Negative, U Marijuana (THC) Screen Negative 11/25/18 13:56: Vancomycin Trough 11.9 11/26/18 06:29: WBC 6.9, RBC 3.23 L, Hgb 10.1 L, Hct 30.3 L, MCV 93.7, MCH 31.3 H, MCHC 33.4, RDW 13.3, Plt Count 280, MPV 9.5, Neut % (Auto) 60.7, Lymph % (Auto) 30.6, [place] % (Auto) 7.0, Eos % (Auto) 1.4, Baso % (Auto) 0.3, Neut # (Auto) 4.2, Lymph # (Auto) 2.1, [place] # (Auto) 0.5, Eos # (Auto) 0.1, Baso # (Auto) 0.0 11/26/18 06:29: Sodium 144, Potassium 3.4 L, Chloride 110 H, Carbon Dioxide 26, Anion Gap 11.4, BUN 2 L D, Creatinine 0.99, Estimated Creat Clear 98, Estimated GFR 65, Est GFR ( Amer) 79, Glucose 101, Calcium 8.0 L I & O for Last 24 hours: Intake & Output 11/23/18 11/24/18 11/25/18 11/26/18 23:59 23:59 23:59 23:59 Intake Total 1196 / 1196 2215 / 2215 4260 / 4260 1151 / 1151 Output Total 200 / 300 100 / 100 850 / 850 Balance 996 / 896 2115 / 2115 3410 / 3410 1151 / 1151 Weight 67.84 kg 67.699 kg 75.886 kg 75.296 kg Microbiology Reports for the Last 24 Hours: Microbiology 11/23/18 00:35 Urine,Clean Catch Urine Culture - Final Escherichia coli Assessment and Plan (1) Dermatitis Current visit: Yes Status: Acute Category: Medical Code(s): L30.9 - Dermatitis, unspecified (2) Drug abuse Current visit: Yes Status: Acute Category: Medical Code(s): F19.10 - Other psychoactive substance abuse, uncomplicated (3) Gingivitis Current visit: Yes Status: Acute Category: Medical Code(s): K05.10 - Chronic gingivitis, plaque induced (4) Severe sepsis Current visit: Yes Status: Acute Category: Medical Code(s): A41.9 - Sepsis, unspecified organism; R65.20 - Severe sepsis without septic shock (5) UTI (urinary tract infection) Current visit: Yes Status: Acute Qualifiers: Urinary tract infection type: site unspecified Hematuria presence: without hematuria Qualified Code(s): N39.0 - Urinary tract infection, site not specified Category: Medical Code(s): N39.0 - Urinary tract infection, site not specified (6) Acute hypokalemia Current visit: Yes Status: Acute Category: Medical Code(s): E87.6 - Hypokalemia (7) Elevated erythrocyte sedimentation rate Current visit: Yes Status: Acute Category: Medical Code(s): R70.0 - Elevated erythrocyte sedimentation rate (8) Elevated C-reactive protein Current visit: Yes Status: Acute Category: Medical Code(s): R79.82 - Elevated C-reactive protein (CRP) The patient's infection will respond to the chosen ABx?: Yes Is the patient receiving the right drug, dose, and route?: Yes Could a more targeted ABx be ordered?: No (E COLI SENSITIVE TO ZOSYN)
--- NOTE | 2018-11-26 10:53 | Progress Note ---
Internal Medicine - PN: Subj *Date: 11/26/18 *Time: 10:50 Interval history: today pt more alert and states she will try to eat. drinking and out of bed more Exam Vital signs and Labs for Last 24 Hours: Temp Pulse Resp BP Pulse Ox 98.3 F 91 H 16 101/60 L 93 L 11/26/18 08:00 11/26/18 08:00 11/26/18 08:00 11/26/18 08:00 11/26/18 08:00 Laboratory Results - last 24 hr 11/23/18 15:30: Hepatitis A IgM Ab Negative, Hep Bs Antigen Negative, Hep B Core IgM Ab Negative, Hepatitis C Antibody >11.0 H 11/25/18 10:30: Sodium 144, Potassium 2.9 L*, Chloride 108 H, Carbon Dioxide 24, Anion Gap 14.9, BUN 3 L D, Creatinine 1.03 H, Estimated Creat Clear 96, Estimated GFR 63, Est GFR ( Amer) 76, Glucose 94, Calcium 7.4 L, Total Bilirubin 0.4, AST 25, ALT 23 D, Alkaline Phosphatase 71, Total Protein 6.2 L D , Albumin 1.9 L, Globulin 4.3 H, Albumin/Globulin Ratio 0.4 L 11/25/18 13:45: Urine Opiates Screen Negative, Urine Methadone Screen Negative, Ur Barbituates Screen Negative, Ur Phencyclidine Scrn Negative, Ur Amphetamines Screen Negative, U Benzodiazepines Scrn Negative, Urine Cocaine Screen Negative, U Marijuana (THC) Screen Negative 11/25/18 13:56: Vancomycin Trough 11.9 11/26/18 06:29: WBC 6.9, RBC 3.23 L, Hgb 10.1 L, Hct 30.3 L, MCV 93.7, MCH 31.3 H, MCHC 33.4, RDW 13.3, Plt Count 280, MPV 9.5, Neut % (Auto) 60.7, Lymph % (Auto) 30.6, [place] % (Auto) 7.0, Eos % (Auto) 1.4, Baso % (Auto) 0.3, Neut # (Auto) 4.2, Lymph # (Auto) 2.1, [place] # (Auto) 0.5, Eos # (Auto) 0.1, Baso # (Auto) 0.0 11/26/18 06:29: Sodium 144, Potassium 3.4 L, Chloride 110 H, Carbon Dioxide 26, Anion Gap 11.4, BUN 2 L D, Creatinine 0.99, Estimated Creat Clear 98, Estimated GFR 65, Est GFR ( Amer) 79, Glucose 101, Calcium 8.0 L I & O for Last 24 hours: Intake & Output 11/23/18 11/24/18 11/25/18 11/26/18 11:59 11:59 11:59 11:59 Intake Total 3171 / 3171 3058 / 3058 2593 / 2593 Output Total 300 / 300 350 / 350 500 / 500 Balance 2871 / 2871 2708 / 2708 2093 / 2093 Weight 149 lb 9 oz 149 lb 4 oz 167 lb 4.8 oz 166 lb Microbiology Reports for the Last 24 Hours: Microbiology 11/23/18 00:35 Urine,Clean Catch Urine Culture - Final Escherichia coli - Constitutional no acute distress - *Routine HEENT Exam Head: Present: normocephalic Eye: Present: PERRL ENT: Present: mucous membranes moist - *Routine Neck Exam Present: supple. Absent: lymphadenopathy - *Routine Respiratory Exam Present: CTA bilaterally - *Routine Cardiovascular Exam Present: RRR - *Routine Abdominal Exam Present: soft, normoactive bowel sounds. Absent: tenderness - *Routine Extremities Exam Absent: cyanosis, clubbing, edema - *Routine Skin Exam Present: warm, wounds. Absent: rash Comments: scabbed areas to arms,back,chest,face and neck. scabbed areas around mouth - *Routine Neurological Exam Present: alert, oriented X3 Assessment and Plan (1) Dermatitis Current visit: Yes Status: Acute Category: Medical Code(s): L30.9 - Dermatitis, unspecified (2) Drug abuse Current visit: Yes Status: Acute Category: Medical Code(s): F19.10 - Other psychoactive substance abuse, uncomplicated (3) Gingivitis Current visit: Yes Status: Acute Category: Medical Code(s): K05.10 - Chronic gingivitis, plaque induced (4) Severe sepsis Current visit: Yes Status: Acute Category: Medical Code(s): A41.9 - Sepsis, unspecified organism; R65.20 - Severe sepsis without septic shock (5) UTI (urinary tract infection) Current visit: Yes Status: Acute Qualifiers: Urinary tract infection type: site unspecified Hematuria presence: without hematuria Qualified Code(s): N39.0 - Urinary tract infection, site not specified Category: Medical Code(s): N39.0 - Urinary tract infection, site not specified (6) Acute hypokalemia Current visit: Yes Status: Acute Category: Medical Code(s): E87.6 - Hypokalemia (7) Elevated erythrocyte sedimentation rate Current visit: Yes Status: Acute Category: Medical Code(s): R70.0 - Elevated erythrocyte sedimentation rate (8) Elevated C-reactive protein Current visit: Yes Status: Acute Category: Medical Code(s): R79.82 - Elevated C-reactive protein (CRP) - Assessment and plan all Dx Assessment and Plan for all problems:: aidan bland round later today, discussed pt with aidan louis dc in am
[2018-11-27 09:49] LABS: Basophils % 0.4 % (0.1-2.0); Eosinophils # 0.2 K/mm3 (0.0-0.4); Hematocrit 31.9 % (37.0-47.0); Hemoglobin 10.8 g/dL (12.2-16.2); Lymphocytes # 2.5 K/mm3 (0.7-4.5); Lymphocytes % 28.7 % (10-50); Mean Corpuscular Hemoglobin 31.5 pg (27.0-31.2); Mean Corpuscular Volume 92.8 fl (81-99); Mean Platelet Volume 8.9 fl (7.4-10.4); Monocytes # 0.4 K/mm3 (0.1-1.0); Monocytes % 4.5 % (1.7-9.3); Neutrophils # 5.5 K/mm3 (1.8-7.8); Neutrophils % 64.4 % (37.0-80.0); Platelet Count 372 K/mm3 (142-424); Red Blood Count 3.44 M/mm3 (4.20-5.40); Red Cell Distribution Width 13.3 % (11.5-17.5); White Blood Count 8.6 K/mm3 (4.8-10.8)
[2018-11-27 09:58] LABS: Albumin Level 2.3 gm/dL (3.4-5.0); Bilirubin,Direct 0.1 mg/dL (0.0-0.2); Bilirubin,Indirect 0.3 mg/dL (0.0-0.9); Bilirubin,Total 0.4 mg/dL (0.2-1.0); Calcium 8.1 mg/dL (8.5-10.1)
--- NOTE | 2018-11-27 12:49 | Progress Note ---
Internal Medicine - PN: Subj *Date: 11/27/18 *Time: 12:47 Interval history: pt reports not eating and rt sided chest pain Exam Vital signs and Labs for Last 24 Hours: Temp Pulse Resp BP Pulse Ox 98.6 F 73 18 111/72 97 11/27/18 07:41 11/27/18 07:41 11/27/18 07:41 11/27/18 07:41 11/27/18 07:41 Laboratory Results - last 24 hr 11/27/18 09:30: WBC 8.6, RBC 3.44 L, Hgb 10.8 L, Hct 31.9 L, MCV 92.8, MCH 31.5 H, MCHC 34.0, RDW 13.3, Plt Count 372 D, MPV 8.9, Neut % (Auto) 64.4, Lymph % (Auto) 28.7, [place] % (Auto) 4.5, Eos % (Auto) 2.0, Baso % (Auto) 0.4, Neut # (Auto) 5.5, Lymph # (Auto) 2.5, [place] # (Auto) 0.4, Eos # (Auto) 0.2, Baso # (Auto) 0.0 11/27/18 09:30: Sodium 142, Potassium 3.0 L, Chloride 106, Carbon Dioxide 27, Anion Gap 12.0, BUN 3 L D, Creatinine 0.87, Estimated Creat Clear 103, Estimated GFR 76, Est GFR ( Amer) 92, Glucose 87, Calcium 8.1 L, Total Bilirubin 0.4, Direct Bilirubin 0.1, Indirect Bilirubin 0.3, AST 11 L D, ALT 20, Alkaline Phosphatase 66, Total Protein 7.0, Albumin 2.3 L I & O for Last 24 hours: Intake & Output 11/25/18 11/26/18 11/27/18 11/28/18 11:59 11:59 11:59 11:59 Intake Total 3058 / 3058 2593 / 2593 1437 / 1437 Output Total 350 / 350 500 / 500 600 / 600 Balance 2708 / 2708 2093 / 2093 837 / 837 Weight 167 lb 4.8 oz 166 lb 153 lb 4 oz - Constitutional no acute distress - *Routine HEENT Exam Head: Present: normocephalic Eye: Present: EOMI, PERRL ENT: Present: mucous membranes dry - *Routine Neck Exam Present: supple - *Routine Respiratory Exam Present: CTA bilaterally - *Routine Cardiovascular Exam Present: RRR. Absent: murmur - *Routine Abdominal Exam Present: soft - *Routine Extremities Exam Absent: calf tenderness - *Routine Skin Exam Present: intact - *Routine Neurological Exam Present: alert, oriented X3, CN II-XII intact - Routine Psychiatric Exam Present: normal affect Assessment and Plan (1) Dermatitis Current visit: Yes Status: Acute Category: Medical Code(s): L30.9 - Dermatitis, unspecified (2) Drug abuse Current visit: Yes Status: Acute Category: Medical Code(s): F19.10 - Other psychoactive substance abuse, uncomplicated (3) Gingivitis Current visit: Yes Status: Acute Category: Medical Code(s): K05.10 - Chronic gingivitis, plaque induced (4) Severe sepsis Current visit: Yes Status: Acute Category: Medical Code(s): A41.9 - Sepsis, unspecified organism; R65.20 - Severe sepsis without septic shock (5) UTI (urinary tract infection) Current visit: Yes Status: Acute Qualifiers: Urinary tract infection type: site unspecified Hematuria presence: without hematuria Qualified Code(s): N39.0 - Urinary tract infection, site not specified Category: Medical Code(s): N39.0 - Urinary tract infection, site not specified (6) Acute hypokalemia Current visit: Yes Status: Acute Category: Medical Code(s): E87.6 - Hypokalemia (7) Elevated erythrocyte sedimentation rate Current visit: Yes Status: Acute Category: Medical Code(s): R70.0 - Elevated erythrocyte sedimentation rate (8) Elevated C-reactive protein Current visit: Yes Status: Acute Category: Medical Code(s): R79.82 - Elevated C-reactive protein (CRP)
--- NOTE | 2018-11-28 08:41 | Discharge Summary ---
General - General Admission date:: 11/23/18 Discharge date: 11/28/18 HPI HPI: this wf presented to ed with dental infection and facial swelling with tacycardia and hx of drug use and rt sided chest pain - she was found to have severe sepsis and uti and dental infection and admitted for ivf and abx Hospital Course Hospital Course: cta:IMPRESSION: 1. No evidence of pulmonary embolus, aortic aneurysm, or aortic dissection. 2. Right pleural effusion with some irregular consolidation in the right middle lobe and right lower lobe consistent with areas of atelectasis and or infiltrate chest x ray:IMPRESSION: Right lower lobe pneumonia with small effusion echo:CONCLUSION: 1. Normal left ventricular size, preserved left ventricular systolic function, visually estimated ejection fraction 55% with no regional wall motion abnormality, diastolic parameters are within normal range. 2. Mild mitral and tricuspid regurgitation 3. No significant pericardial effusion noted. urine cx + ecoli- dc home follow-up in the office in 2 weeks. Objective Vital signs: Temp Pulse Resp BP Pulse Ox 99.3 F 60 16 111/69 98 11/28/18 08:00 11/28/18 08:00 11/28/18 08:00 11/28/18 08:00 11/28/18 08:00 no acute distress - *Routine HEENT Exam Head: Present: normocephalic Eye: Present: PERRL ENT: Present: mucous membranes moist Comments: redness in mouth - *Routine Neck Exam Present: full ROM - *Routine Respiratory Exam Present: CTA bilaterally - *Routine Cardiovascular Exam Present: RRR - *Routine Abdominal Exam Present: soft, normoactive bowel sounds - *Routine Extremities Exam Present: full ROM - *Routine Skin Exam Present: wounds Comments: Scattered scabs in different stages of healing throughout back,face, and arms - *Routine Neurological Exam Present: alert, oriented X3 - Routine Psychiatric Exam Present: normal affect Results Labs on day of discharge: Labs from last 24 hours 11/27/18 11/27/18 09:30 09:30 WBC 8.6 RBC 3.44 L Hgb 10.8 L Hct 31.9 L MCV 92.8 MCH 31.5 H MCHC 34.0 RDW 13.3 Plt Count 372 D MPV 8.9 Neut % (Auto) 64.4 Lymph % (Auto) 28.7 [place] % (Auto) 4.5 Eos % (Auto) 2.0 Baso % (Auto) 0.4 Neut # (Auto) 5.5 Lymph # (Auto) 2.5 [place] # (Auto) 0.4 Eos # (Auto) 0.2 Baso # (Auto) 0.0 Sodium 142 Potassium 3.0 L Chloride 106 Carbon Dioxide 27 Anion Gap 12.0 BUN 3 L D Creatinine 0.87 Estimated Creat Clear 103 Estimated GFR 76 Est GFR ( Amer) 92 Glucose 87 Calcium 8.1 L Total Bilirubin 0.4 Direct Bilirubin 0.1 Indirect Bilirubin 0.3 AST 11 L D ALT 20 Alkaline Phosphatase 66 Total Protein 7.0 Albumin 2.3 L - Additional Comments Rounded with Dr. Carroll all orders per [place] [facility]: Diagnosis - Discharge Diagnosis (1) Dermatitis Status: Acute (2) Drug abuse Status: Acute (3) Gingivitis Status: Acute (4) Severe sepsis Status: Acute (5) UTI (urinary tract infection) Status: Acute (6) Acute hypokalemia Status: Acute (7) Elevated erythrocyte sedimentation rate Status: Acute (8) Elevated C-reactive protein Status: Acute (9) E-coli UTI Status: Acute Discharge Plan - Patient Discharge Instructions ACTIVITY: Continue current activity DIET: continue same diet Patient Instructions: DI for Urinary Tract Infection (UTI), DI for Gingivitis, DI for Sepsis -- Adult - Follow up Plan Follow up with: Tom Carroll MD [Emergency Provider] - 2 weeks Disposition: Home, Self-Senior Care Medications: Home Medications Medication Instructions Recorded Confirmed Type Azithromycin [Zithromax 250mg 250 mg PO DIRECTED #6 tab 11/28/18 Rx tab] Lidocaine HCl [Lidocaine 2% 15 ml PO Q4HP PRN 7 Days #28 udc 11/28/18 Rx viscous solution 15mL UDC] cephALEXin [Keflex 500mg Cap] 500 mg PO BID 10 Days #20 cap 11/28/18 Rx Prescriptions/Medication Reconciliation: New cephALEXin [Keflex 500mg Cap] 500 mg PO BID 10 Days #20 cap Lidocaine HCl [Lidocaine 2% viscous solution 15mL UDC] 15 ml PO Q4HP PRN 7 Days #28 udc PRN Reason: MOUTH/LIP PAIN Azithromycin [Zithromax 250mg tab] 250 mg PO DIRECTED #6 tab Ibuprofen [Motrin 400mg tablet] 400 mg PO Q4HP PRN tablet PRN Reason: MILD PAIN/FEVER
== END 2018-11-28 13:56 | disposition home or self-care (01) | DRG 872 ==
LOC: ER 00:29 → 2ND 00:29
PROVIDERS: ADMIT Emergency Medicine; ATTEND Emergency Medicine
CPT/HCPCS: 36415; 71020; 71046; 71275; 80048; 80053; 80074; 80076; 80202; 80305; 81001; 81025; 82550; 82553; 83605; 83735; 84484; 85025; 85651; 86140; 87040; 87086; 87088; 87186; 87522; 93005; 93306; 96365; 96367; 96375; 99285; J2543; J3370; Q9967